=== PATIENT | female | born 1985 | race African-American/Black ===

== ENCOUNTER 2021-04-11 04:12 | Day surgery (SDC) | payer OTHER ==
[2021-03-25 12:36] VITALS: BMI 24.5
[2021-04-11] MEDS ORDERED: LIDOCAINE HCL/PF 2% SDV 5ML VIAL ONE ×2 (12:10→12:24)
[2021-04-11] MEDS ORDERED: ONDANSETRON 4 MG/2 ML VIAL ONE ×2 (12:10→12:24)
[2021-04-11] MEDS ORDERED: PROPOFOL 20 ML ONE ×2 (12:10→12:44)
[2021-04-11] MEDS ORDERED: MIDAZOLAM HCL 2 MG/2 ML SINGLE DOSE VIAL ONE (12:10)
[2021-04-11] MEDS ORDERED: DEXAMETHASONE SOD PHOSPHATE 4 MG/1 ML VIAL ONE (12:10)
[2021-04-11] MEDS ORDERED: methylPREDNISolone NA SUCC 125 MG/2 ML VIAL ONE (12:22)
[2021-04-11] MEDS ORDERED: KETOROLAC TROMETHAMINE 30 MG/1 ML VIAL ONE (12:57)
[2021-04-11] MEDS ORDERED: ONDANSETRON 4 MG/2 ML VIAL IVPUSH PRN (13:27)
[2021-04-11] MEDS ORDERED: ACETAMINOPHEN 325 MG TABLET (FP) PO PRN (13:27)
[2021-04-11] MEDS ORDERED: oxyCODONE HCL 5 MG TABLET PO PRN (13:27)
[2021-04-11] MEDS ORDERED: LACTATED RINGERS SOLUTION 1,000 ML IV SCH (13:30)
[2021-04-11 14:17] VITALS: TEMP 98.3
[2021-04-11 16:26] VITALS: BP 122/80; PULSE 70
== END 2021-04-11 15:40 | disposition home or self-care (01) ==
LOC: JASU-SURG 04:12
PROVIDERS: ATTEND Obstetrics & Gynecology
PROC: 0UDB8ZX Extraction of Endometrium, Via Natural or Artificial Opening Endoscopic, Diagnostic (ICD-10-PCS; principal; 2021-04-11 12:00)
DX: N93.9 Abnormal uterine and vaginal bleeding, unspecified (principal); N84.0 Polyp of corpus uteri
CPT/HCPCS: 81025; 88305-TC; 94760

== ENCOUNTER 2022-10-06 20:00 | Inpatient (IN) | payer OTHER ==
[2022-10-06] MEDS: DEXTROSE 5%-LACTATED RINGERS 1,000 ML IV SCH (21:00)
[2022-10-06] MEDS ORDERED: SODIUM CHLORIDE 500 ML IV STA (21:14)
[2022-10-06 21:19] LABS: BASO % 0.3 % (0-2.0); EOS % 1.7 % (0-4.5); HEMATOCRIT 34.6 % (32.4-45.2); HEMOGLOBIN 11.7 GM/dL (10.7-15.3); LYMPH % 17.4 % (8-40); MCH 31.1 pg (25.7-33.7); MCHC 33.9 g/dl (32.0-36.0); MEAN CELL VOLUME 91.8 fl (80-96); MEAN PLT VOLUME 9.3 fl (7.5-11.1); MONO % 8.3 % (3.8-10.2); NEUT % 72.3 % (42.8-82.8); PLATELET COUNT 140 10^3/uL (134-434); RBC 3.77 M/mm3 (3.60-5.2); RDW 14.1 % (11.6-15.6); WHITE BLOOD COUNT 10.9 K/mm3 (4.0-10.0)
[2022-10-06 21:29] LABS: INR 1.04 (0.83-1.09); PROTHROMBIN TIME (PATIENT) 12.1 SEC (9.7-13.0)
[2022-10-06 21:32] LABS: ACTIVATED PTT 28.4 SECONDS (25.2-36.5)
[2022-10-06 22:06] LABS: POTASSIUM 3.4 mmol/L (3.5-5.1)
[2022-10-06 22:08] LABS: CALCIUM 8.9 mg/dL (8.5-10.1)
[2022-10-06 22:09] LABS: ALBUMIN 2.9 g/dl (3.4-5.0); BLOOD UREA NITROGEN 4.8 mg/dL (7-18)
[2022-10-06 22:12] LABS: CREATININE 0.6 mg/dL (0.55-1.3)
[2022-10-06 22:14] LABS: TOT PROT 6.5 g/dl (6.4-8.2)
[2022-10-06] MEDS: MISOPROSTOL 100 MCG TABLET PV SCH (22:30)
[2022-10-06 22:47] LABS: BILIRUBIN,TOTAL 0.3 mg/dL (0.2-1)
[2022-10-06] MEDS ORDERED: CITRIC ACID/SODIUM CITRATE 30 ML UNIT-DOSE CUP PO ONE (23:10)
[2022-10-06 23:20] VITALS: BMI 34.4
[2022-10-07] MEDS: MISOPROSTOL 100 MCG TABLET PV SCH ×2 (02:45→09:44)
[2022-10-07] MEDS: DEXTROSE 5%-LACTATED RINGERS 1,000 ML IV SCH (06:00)
[2022-10-07] MEDS ORDERED: OXYTOCIN 30 UNITS in 0.9% NS 30 UNIT/500 ML INFUS.BAG IVPB SCH (08:00)
[2022-10-07] MEDS ORDERED: morphine SULFATE 4 MG/ML VIAL IVPB ONE (09:08)
[2022-10-07] MEDS ORDERED: morphine SULFATE 4 MG/ML VIAL ONE (09:16)
[2022-10-07] MEDS ORDERED: SODIUM CHLORIDE 500 ML IV STA (10:46)
[2022-10-07] MEDS ORDERED: OXYTOCIN 20 UNITS in 0.9% NS 20 UNIT/1,000 ML INFUS.BAG IV ONE (12:24)
[2022-10-07] MEDS ORDERED: BENZOCAINE 28 GM HEMORRHOIDAL OINTMENT TP PRN (13:32)
[2022-10-07] MEDS ORDERED: ACETAMINOPHEN 325 MG TABLET (FP) PO PRN (13:32)
[2022-10-07] MEDS ORDERED: WITCH HAZEL 50% (TUCKS) 40 PAD/JAR PAD TP PRN (13:32)
[2022-10-07] MEDS ORDERED: DOCUSATE SODIUM 100 MG CAPSULE (FP) PO PRN (13:33)
[2022-10-07] MEDS ORDERED: OXYTOCIN 20 UNITS in 0.9% NS 20 UNIT/1,000 ML INFUS.BAG IV SCH (13:45)
[2022-10-07] MEDS: FERROUS SO4 325 MG TABLET (FP) PO SCH (18:01)
[2022-10-08] MEDS: IBUPROFEN 600 MG TABLET (FP) PO PRN ×2 (03:37→09:34)
[2022-10-08 09:01] LABS: BASO % 0.2 % (0-2.0); EOS % 0.8 % (0-4.5); HEMATOCRIT 29.1 % (32.4-45.2); HEMOGLOBIN 10.1 GM/dL (10.7-15.3); LYMPH % 15.1 % (8-40); MCH 31.9 pg (25.7-33.7); MCHC 34.7 g/dl (32.0-36.0); MEAN CELL VOLUME 92.1 fl (80-96); MEAN PLT VOLUME 10.3 fl (7.5-11.1); NEUT % 75.9 % (42.8-82.8); PLATELET COUNT 136 10^3/uL (134-434); RBC 3.16 M/mm3 (3.60-5.2); RDW 13.9 % (11.6-15.6)
[2022-10-08] MEDS: FERROUS SO4 325 MG TABLET (FP) PO SCH ×3 (09:34→16:58)
[2022-10-08] MEDS: PRENATAL VITAMINS W/ FOLIC ACID TABLET (FP) PO SCH (09:34)
[2022-10-09] MEDS: FERROUS SO4 325 MG TABLET (FP) PO SCH (08:18)
[2022-10-09 09:32] VITALS: BP 110/71; PULSE 86; RESP 17; TEMP 98.2
[2022-10-09] MEDS: PRENATAL VITAMINS W/ FOLIC ACID TABLET (FP) PO SCH (09:52)
== END 2022-10-09 12:45 | disposition home or self-care (01) | DRG 807 ==
LOC: JLDR 20:00 → J3W 10-07 16:30
PROVIDERS: ADMIT Obstetrics & Gynecology Maternal & Fetal Medicine; ATTEND Obstetrics & Gynecology Maternal & Fetal Medicine
PROC: 10E0XZZ Delivery of Products of Conception, External Approach (ICD-10-PCS; principal; 2022-10-07)
DX: O99.12 Other diseases of the blood and blood-forming organs and certain disorders involving the immune mechanism complicating childbirth (principal); Z37.0 Single live birth; D69.6 Thrombocytopenia, unspecified; O34.13 Maternal care for benign tumor of corpus uteri, third trimester; O26.23 Pregnancy care for patient with recurrent pregnancy loss, third trimester; Z3A.39 39 weeks gestation of pregnancy
CPT/HCPCS: 36415; 80053; 85025; 85610; 85730; 86780; 86850; 86900; 86901; 88307-TC; C9803-CS; U0003; U0005